=== PATIENT | female | born 1950 | race Hispanic/Latino ===

== ENCOUNTER → 2022-09-07 | Day surgery (SDC) | payer MEDICARE ==
[2022-09-03 12:03] LABS: BASOPHILS % 0.4 % (0.0-1.0); EOSINOPHILS # (AUTO) 0.1 (0.0-0.4); EOSINOPHILS % 1.7 % (0.0-6.0); HEMATOCRIT 42.6 % (34.2-44.1); LYMPHOCYTES # (AUTO) 2.3 (1.0-3.2); LYMPHOCYTES % 30.8 % (18.0-39.1); MEAN CORPUSCULAR HEMOGLOBIN 29.1 pg (28-32); MEAN CORPUSCULAR HGB CONC 30.5 g/dL (31-35); MEAN CORPUSCULAR VOLUME 95.5 fL (81-99); MONOCYTES # (AUTO) 0.7 (0.2-0.8); MONOCYTES % 9.9 % (4.4-11.3); NEUTROPHILS # (AUTO) 4.3 (2.1-6.9); NEUTROPHILS % 57.1 % (38.7-80.0); PLATELET COUNT 216 x10e3/uL (140-360); RED BLOOD COUNT 4.46 x10e6/uL (3.6-5.1); RED CELL DISTRIBUTION WIDTH 12.5 % (11.7-14.4)
[2022-09-03 12:15] LABS: ANION GAP 11.5 mmol/L (8-16); CALCIUM 9.4 mg/dL (8.4-10.2); CREATININE, SERUM 0.63 mg/dL (0.57-1.11); POTASSIUM 4.5 mmol/L (3.5-5.1)
[~2022-09-07] MED LIST: ADVIL PM CAPLE1 EACH PO; AMLODIPINE BESY10 MG PO; ASPIRIN EC81 MG PO; ATORVASTATIN CA10 MG PO; BUPIVACAINE HCL 0.5% INJ 30 ML VIAL INJ ONE; DEXAMETHASONE SOD PHOS INJ 4 MG/ML SDV ONE; EPHEDRINE SULFATE INJ 50 MG/ML VIAL ONE; EPINEPHRINE HCL 1:1000 1ML 1 MG/ML AMP ONE; FENTANYL CITRATE/PF 100MCG/2 ML INJ IV ONE; FENTANYL CITRATE/PF 100MCG/2 ML INJ ONE; FUROSEMIDE40 MG PO; HYDROCODONE/APAP 5MG-325MG TAB ONE; LACTATED RINGER'S 1,000 ML ONE; LIDOCAINE HCL 2% LOCAL INJ 5 ML SDV VIAL INJ ONE; LISINOPRIL-HCT1 EACH PO; METOCLOPRAMIDE HCL 10 MG/2ML VIAL ONE; METOPROLOL SUCC50 MG PO; MIDAZOLAM HCL 2 MG/2 ML VIAL ONE; MYRBETRIQ50 MG PO; NEURONTIN300 MG PO; OMEGA 3 1,0001 EACH PO; ONDANSETRON HCL INJ 2MG/ML 2ML 2 MG/ML VIAL IV ONE; ONDANSETRON HCL INJ 2MG/ML 2ML 2 MG/ML VIAL ONE; POVIDONE IODINE 0.05% 0.05 % ML PO ONE; PROBIOTIC & AC1 EACH PO; PROPOFOL IV EMULSION 10 MG/ML 20 ML VIAL ONE; PROTONIX20 MG PO; PROVENTIL HFA6.7 GM INH; SERTRALINE HCL100 MG PO; SEVOFLURANE INHAL SOLN 250 ML PEN BTL ONE; ULTRAM 50MG50 MG PO
[2022-09-07 13:05] VITALS: BP 111/50
== END | disposition home or self-care (01) ==
LOC: OR 08:19
PROVIDERS: ATTEND Specialist
DX: S52.551A Other extraarticular fracture of lower end of right radius, initial encounter for closed fracture (principal); J43.9 Emphysema, unspecified; I10 Essential (primary) hypertension; W01.10XA Fall on same level from slipping, tripping and stumbling with subsequent striking against unspecified object, initial encounter; Y93.89 Activity, other specified; Y92.22 Religious institution as the place of occurrence of the external cause; Y99.8 Other external cause status; Z01.810 Encounter for preprocedural cardiovascular examination; Z01.812 Encounter for preprocedural laboratory examination; Z01.818 Encounter for other preprocedural examination; Z79.82 Long term (current) use of aspirin; Z79.899 Other long term (current) drug therapy; Z68.37 Body mass index [BMI] 37.0-37.9, adult
CPT/HCPCS: 25607; 36415; 71046; 80048; 85025; 93005; C1713 ×6; J0171; J0690; J1100; J2001; J2250; J2405; J2704; J2765; J3010; J7121; 76000